=== PATIENT | female | born 1985 | race Caucasian/White ===

== ENCOUNTER 2020-08-31 05:11 | Emergency (ER) | payer OTHER ==
[~2020-08-31] VITALS: Ht 165.1 cm; Wt 70.3 kg
[~2020-08-31 05:11] MED LIST: DOXYCYCLINE HY100 MG PO; HYDROXYZINE HCL25 MG PO
[2020-08-31] MEDS ORDERED: LEVOTHYROXINE50 MCG PO (05:21)
[2020-08-31] MEDS ORDERED: BACLOFEN10 MG PO (05:21)
[2020-08-31] MEDS ORDERED: FLUOXETINE HCL60 MG PO (05:21)
[2020-08-31] MEDS ORDERED: DOXYCYCLINE HY100 MG PO (05:40)
== END 2020-08-31 05:54 | disposition home or self-care (01) ==
LOC: ED 05:11
DX: L70.9 Acne, unspecified (principal); L98.9 Disorder of the skin and subcutaneous tissue, unspecified; F17.200 Nicotine dependence, unspecified, uncomplicated; Z79.899 Other long term (current) drug therapy
CPT/HCPCS: 99282

== ENCOUNTER 2021-10-05 12:36 | Emergency (ER) | payer OTHER ==
[~2021-10-05] VITALS: Ht 165.1 cm; Wt 70.3 kg
[~2021-10-05 12:36] MED LIST changes: +BACLOFEN10 MG PO; +FLUOXETINE HCL60 MG PO; +LEVOTHYROXINE50 MCG PO
[2021-10-05] MEDS ORDERED: METHADONE HCL5 MG PO (15:13)
[2021-10-05] MEDS ORDERED: BACTRIM DS TAB1 EACH PO (18:15)
--- NOTE | 2021-10-06 12:14 | EKG ---
[facility] [address] [place], [place] [address] Signed Sinus tachycardia Otherwise normal ECG No previous ECGs available Confirmed by DIANA COLEMAN MD ([id number]) on 10/06/2021 12:14:01 PM Electronically Signed By: DIANA COLEMAN MD 10/06/21 1214 PATIENT NAME: SOLANGE BELL Electrocardiogram DATE OF : 85 PHYSICIAN: DIANA COLEMAN MD REPORT #: [id number] REPORT IS CONFIDENTIAL AND NOT TO BE RELEASED WITHOUT AUTHORIZATION
== END 2021-10-05 23:08 | disposition home or self-care (01) ==
LOC: ED 12:36
DX: L03.312 Cellulitis of back [any part except buttock and flank] (principal); L03.114 Cellulitis of left upper limb; F17.200 Nicotine dependence, unspecified, uncomplicated; Z20.822 Contact with and (suspected) exposure to COVID-19
CPT/HCPCS: 36415; 71045; 80053; 81001; 83605; 85025; 85610; 85730; 87502; 93005; 93010; 96365; 96366; 99284-25; A9270; C9803; J1885; J3370; J7030; J7060; U0003

== ENCOUNTER 2022-09-03 14:28 | Emergency (ER) | payer OTHER ==
[~2022-09-03] VITALS: Ht 165.1 cm; Wt 70.3 kg
[~2022-09-03 14:28] MED LIST changes: +BACTRIM DS TAB1 EACH PO; +METHADONE HCL5 MG PO
[2022-09-03] MEDS ORDERED: CLEOCIN HCL300 MG PO (19:27)
[2022-09-03 20:10] VITALS: BP 120/71
== END 2022-09-03 20:10 | disposition home or self-care (01) ==
LOC: ED 14:28
DX: L02.01 Cutaneous abscess of face (principal); F17.200 Nicotine dependence, unspecified, uncomplicated; Z79.899 Other long term (current) drug therapy
CPT/HCPCS: 10060; 36415; 70487; 80053; 84703; 85025; 99283-25; J1885; J3490; Q9967

== ENCOUNTER 2022-11-11 23:27 | Emergency (ER) | payer OTHER ==
[~2022-11-11] VITALS: Ht 162.6 cm; Wt 70.3 kg
--- OUTSIDE RECORDS SUMMARY | ~2022-11-11 | XMS | Continuity of Care Document ---
Demographics + + + | Address | [address] | | | [place] [address] | + + + | Preferred Language | Unknown | + + + | Marital Status | Never | + + + | Yazidi Affiliation | Unknown | + + + | Race | White | + + + | Ethnic Group | Not or | + + + Author + + + | Author | [facility] | + + + | Organization | [facility] | + + + | Address | [address] | | | [place] [address] | + + + | Phone | | + + + Care Team Providers + + + + | Care Military Communications Specialist Name | Role | Phone | + + + + Unavailable | Unavailable | + + + + Unavailable | Unavailable | + + + + Allergies No information. Encounters No information. Functional Status No information. Immunizations No information. Medications + + + + | date | description | facility | + + + + | 2021-10-06 00:00 | FLUOXETINE HCL | [facility] | + + + + | 2020-08-31 00:00 | DOXYCYCLINE HYCLATE | [facility] | + + + + | 2014-08-09 00:00 | DOXYCYCLINE HYCLATE | [facility] | + + + + | 2021-10-06 00:00 | BACLOFEN | [facility] | + + + + | 2022-09-03 00:00 | CLINDAMYCIN HCL | [facility] | + + + + | 2021-10-05 00:00 | | [facility] | | | SULFAMETHOXAZOLE/TRIMETHOPR | | | | IM DS | | + + + + | 2021-10-06 00:00 | METHADONE HCL | [facility] | + + + + | 2022-09-03 00:00 | METHADONE HCL | [facility] | + + + + | 2021-10-06 00:00 | LEVOTHYROXINE SODIUM | [facility] | + + + + | 2021-10-06 00:00 | hydrOXYzine HCL | [facility] | + + + + | 2022-09-03 00:00 | hydrOXYzine HCL | [facility] | + + + + Problems + + + + | date | description | facility | + + + + | 2014-08-25 00:00 | Substance abuse | [facility] | + + + + | 2021-10-05 00:00 | Cellulitis of back except | [facility] | | | buttock | | + + + + | 2022-09-03 00:00 | Abscess of face | [facility] | + + + + | 2022-09-03 14:29 | NICOTINE DEPENDENCE, | [facility] | | | UNSPECIFIED, UNCOMPLICATED | | + + + + | 2022-09-03 14:29 | CUTANEOUS ABSCESS OF FACE | [facility] | + + + + | 2022-09-03 14:29 | OTHER DEBEAKER (CURRENT) | [facility] | | | DRUG THERAPY | | + + + + Procedures No information. Results/Labs +--------+--------+ +---------+--------+---------+ | test | date | facility | value | unit | notes | +--------+--------+ +---------+--------+---------+ + + | Result panel 1 | + + + + + + + + + | | 2021-10-05 | [facility] | NEGATIVE | (missing) | (missing) | | (unavailable | 15:20 [facility] | | | + + + + + + + + + | Result panel 2 | + + + + + + + + + | | 2021-10-05 | [facility] | NEGATIVE | (missing) | (missing) | | (unavailable | 15:20 [facility] | | | | + + + + + + + + + | Result panel 3 | + + + + + + + + + | | 2021-10-05 | [facility] | NEGATIVE | (missing) | (missing) | | (unavailable | 15:20 [facility] | | | | + + + + + + + + + | Result panel 4 | + + + + + + + + + | | 2021-10-05 | [facility] | NEGATIVE | (missing) | (missing) | | (unavailable | 15:20 [facility] | | | | + + + + + + + + + | Result panel 5 | + + + + + +--------+ + + | | 2021-10-05 | [facility] | 14.5 | (missing) | (missing) | | (unavailable | 18:32 [facility] | | | | + + + +--------+ + + + + | Result panel 6 | + + + + + +--------+ + + | | 2021-10-05 | [facility] | 1.17 | (missing) | (missing) | | (unavailable | 18:32 [facility] | | | | + + + +--------+ + + + + | Result panel 7 | + + + + + +--------+ + + | | 2021-10-05 | [facility] | 28.3 | (missing) | (missing) | | (unavailable | 18:32 [facility] | | | | + + + +--------+ + + + + | Result panel 8 | + + + + + +------+---------+ + | | 2021-10-05 | [facility] | 96 | mg/dL | (missing) | | (unavailable | 18:32 [facility] | | | | + + + +------+---------+ + + + | Result panel 9 | + + + + + +------+---------+ + | | 2021-10-05 | [facility] | 12 | mg/dL | (missing) | | (unavailable | 18:32 [facility] | | | | + + + +------+---------+ + + + | Result panel 10 | + + + + + +--------+---------+ + | | 2021-10-05 | [facility] | 1.02 | mg/dL | (missing) | | (unavailable | 18:32 [facility] | | | | + + + +--------+---------+ + + + | Result panel 11 | + + + + + +------+ + + | | 2021-10-05 | [facility] | 73 | (missing) | (missing) | | (unavailable | 18:32 [facility] | | | | + + + +------+ + + + + | Result panel 12 | + + + + + +---------+ + + | | 2021-10-05 | [facility] | 11.76 | (missing) | (missing) | | (unavailable | 18:32 [facility] | | | | + + + +---------+ + + + + | Result panel 13 | + + + + + +-------+ + + | | 2021-10-05 | [facility] | 132 | (missing) | (missing) | | (unavailable | 18:32 [facility] | | | | + + + +-------+ + + + + | Result panel 14 | + + + + + +-------+ + + | | 2021-10-05 | [facility] | 3.6 | (missing) | (missing) | | (unavailable | 18:32 [facility] | | | | + + + +-------+ + + + + | Result panel 15 | + + + + + +------+ + + | | 2021-10-05 | [facility] | 95 | (missing) | (missing) | | (unavailable | 18:32 [facility] | | | | + + + +------+ + + + + | Result panel 16 | + + + + + +------+ + + | | 2021-10-05 | [facility] | 25 | (missing) | (missing) | | (unavailable | 18:32 [facility] | | | | + + + +------+ + + + + | Result panel 17 | + + + + + +--------+ + + | | 2021-10-05 | [facility] | 15.6 | (missing) | (missing) | | (unavailable | 18:32 [facility] | | | | + + + +--------+ + + + + | Result panel 18 | + + + + + +-------+---------+ + | | 2021-10-05 | [facility] | 8.3 | mg/dL | (missing) | | (unavailable | 18:32 [facility] | | | | + + + +-------+---------+ + + + | Result panel 19 | + + + + + +-------+ + + | | 2021-10-05 | [facility] | 6.9 | (missing) | (missing) | | (unavailable | 18:32 [facility] | | | | + + + +-------+ + + + + | Result panel 20 | + + + + + +-------+ + + | | 2021-10-05 | [facility] | 2.9 | (missing) | (missing) | | (unavailable | 18:32 [facility] | | | | + + + +-------+ + + + + | Result panel 21 | + + + + + +-------+ + + | | 2021-10-05 | [facility] | 4.0 | (missing) | (missing) | | (unavailable | 18:32 [facility] | | | | + + + +-------+ + + + + | Result panel 22 | + + + + + +--------+ + + | | 2021-10-05 | [facility] | 0.73 | (missing) | (missing) | | (unavailable | 18:32 [facility] | | | | + + + +--------+ + + + + | Result panel 23 | + + + + + +-------+ + + | | 2021-10-05 | [facility] | 0.7 | (missing) | (missing) | | (unavailable | 18:32 [facility] | | | | + + + +-------+ + + + + | Result panel 24 | + + + + + +------+ + + | | 2021-10-05 | [facility] | 12 | (missing) | (missing) | | (unavailable | 18:32 [facility] | | | | + + + +------+ + + + + | Result panel 25 | + + + + + +------+ + + | | 2021-10-05 | [facility] | 20 | (missing) | (missing) | | (unavailable | 18:32 [facility] | | | | + + + +------+ + + + + | Result panel 26 | + + + + + +------+ + + | | 2021-10-05 | [facility] | 84 | (missing) | (missing) | | (unavailable | 18:32 [facility] | | | | + + + +------+ + + + + | Result panel 27 | + + + + + +-------+ + + | | 2021-10-05 | [facility] | 1.5 | (missing) | (missing) | | (unavailable | 18:32 [facility] | | | | + + + +-------+ + + + + | Result panel 28 | + + + + + +--------+ + + | | 2021-10-05 | [facility] | 19.1 | (missing) | (missing) | | (unavailable | 19:29 [facility] | | | | + + + +--------+ + + + + | Result panel 29 | + + + + + +--------+ + + | | 2021-10-05 | [facility] | 3.71 | (missing) | (missing) | | (unavailable | 19:29 [facility] | | | | + + + +--------+ + + + + | Result panel 30 | + + + + + +--------+ + + | | 2021-10-05 | [facility] | 10.9 | (missing) | (missing) | | (unavailable | 19:29 [facility] | | | | + + + +--------+ + + + + | Result panel 31 | + + + + + +--------+ + + | | 2021-10-05 | [facility] | 32.8 | (missing) | (missing) | | (unavailable | 19:29 [facility] | | | | + + + +--------+ + + + + | Result panel 32 | + + + + + +--------+ + + | | 2021-10-05 | [facility] | 88.3 | (missing) | (missing) | | (unavailable | 19:29 [facility] | | | | + + + +--------+ + + + + | Result panel 33 | + + + + + +--------+ + + | | 2021-10-05 | [facility] | 29.5 | (missing) | (missing) | | (unavailable | 19:29 [facility] | | | | + + + +--------+ + + + + | Result panel 34 | + + + + + +--------+ + + | | 2021-10-05 | [facility] | 33.3 | (missing) | (missing) | | (unavailable | 19:29 [facility] | | | | + + + +--------+ + + + + | Result panel 35 | + + + + + +--------+ + + | | 2021-10-05 | [facility] | 13.5 | (missing) | (missing) | | (unavailable | 19:29 [facility] | | | | + + + +--------+ + + + + | Result panel 36 | + + + + + +-------+ + + | | 2021-10-05 | [facility] | 195 | (missing) | (missing) | | (unavailable | 19:29 [facility] | | | | + + + +-------+ + + + + | Result panel 37 | + + + + + +------+ + + | | 2021-10-05 | [facility] | 85 | (missing) | (missing) | | (unavailable | 19:29 [facility] | | | | + + + +------+ + + + + | Result panel 38 | + + + + + +-----+ + + | | 2021-10-05 | [facility] | 6 | (missing) | (missing) | | (unavailable | 19:29 [facility] | | | | + + + +-----+ + + + + | Result panel 39 | + + + + + +-----+ + + | | 2021-10-05 | [facility] | 7 | (missing) | (missing) | | (unavailable | 19:29 [facility] | | | | + + + +-----+ + + + + | Result panel 40 | + + + + + +-----+ + + | | 2021-10-05 | [facility] | 2 | (missing) | (missing) | | (unavailable | 19:29 [facility] | | | | + + + +-----+ + + + + | Result panel 41 | + + + + + + + + + | | 2021-10-05 | [facility] | PRESENT | (missing) | (missing) | | (unavailable | 19:29 [facility] | | | | + + + + + + + + + | Result panel 42 | + + + + + + + + + | | 2021-10-05 | [facility] | PRESENT | (missing) | (missing) | | (unavailable | 19:29 [facility] | | | | + + + + + + + + + | Result panel 43 | + + + + + + + + + | | 2021-10-05 | [facility] | YELLOW | (missing) | (missing) | | (unavailable | 20:20 [facility] | | | | + + + + + + + + + | Result panel 44 | + + + + + +---------+ + + | | 2021-10-05 | [facility] | CLEAR | (missing) | (missing) | | (unavailable | 20:20 [facility] | | | | + + + +---------+ + + + + | Result panel 45 | + + + + + + + + + | | 2021-10-05 | [facility] | NEGATIVE | (missing) | (missing) | | (unavailable | 20:20 [facility] | | | | + + + + + + + + + | Result panel 46 | + + + + + + + + + | | 2021-10-05 | [facility] | NEGATIVE | (missing) | (missing) | | (unavailable | 20:20 [facility] | | | | + + + + + + + + + | Result panel 47 | + + + + + +---------+ + + | | 2021-10-05 | [facility] | SMALL | (missing) | (missing) | | (unavailable | 20:20 [facility] | | | | + + + +---------+ + + + + | Result panel 48 | + + + + + +---------+ + + | | 2021-10-05 | [facility] | 1.020 | (missing) | (missing) | | (unavailable | 20:20 [facility] | | | | + + + +---------+ + + + + | Result panel 49 | + + + + + +---------+ + + | | 2021-10-05 | [facility] | SMALL | (missing) | (missing) | | (unavailable | 20:20 [facility] | | | | + + + +---------+ + + + + | Result panel 50 | + + + + + +-------+ + + | | 2021-10-05 | [facility] | 5.5 | (missing) | (missing) | | (unavailable | 20:20 [facility] | | | | + + + +-------+ + + + + | Result panel 51 | + + + + + + + + + | | 2021-10-05 | [facility] | NEGATIVE | (missing) | (missing) | | (unavailable | 20:20 [facility] | | | | + + + + + + + + + | Result panel 52 | + + + + + + + + + | | 2021-10-05 | [facility] | NORMAL | (missing) | (missing) | | (unavailable | 20:20 [facility] | | | | + + + + + + + + + | Result panel 53 | + + + + + + + + + | | 2021-10-05 | [facility] | NEGATIVE | (missing) | (missing) | | (unavailable | 20:20 [facility] | | | | + + + + + + + + + | Result panel 54 | + + + + + + + + + | | 2021-10-05 | [facility] | NEGATIVE | (missing) | (missing) | | (unavailable | 20:20 [facility] | | | | + + + + + + + + + | Result panel 55 | + + + + + +-------+ + + | | 2021-10-05 | [facility] | 2-3 | (missing) | (missing) | | (unavailable | 20:20 [facility] | | | | + + + +-------+ + + + + | Result panel 56 | + + + + + +-------+ + + | | 2021-10-05 | [facility] | 4-6 | (missing) | (missing) | | (unavailable | 20:20 [facility] | | | | + + + +-------+ + + + + | Result panel 57 | + + + + + + + + + | | 2021-10-05 | [facility] | SQUAMOUS 2+ | (missing) | (missing) | | (unavailable | 20:20 [facility] | | | | + + + + + + + + + | Result panel 58 | + + + + + + + + + | | 2021-10-05 | [facility] | NONE SEEN | (missing) | (missing) | | (unavailable | 20:20 [facility] | | | | + + + + + + + + + | Result panel 59 | + + + + + +--------+ + + | | 2021-10-05 | [facility] | RARE | (missing) | (missing) | | (unavailable | 20:20 [facility] | | | | + + + +--------+ + + + + | Result panel 60 | + + + + + + + + + | | 2021-10-05 | [facility] | WBC CAST 1+ | (missing) | (missing) | | (unavailable | 20:20 [facility] | | | | + + + + + + + + + | Result panel 61 | + + + + + + + + + | | 2021-10-05 | [facility] | CLEAN CATCH | (missing) | (missing) | | (unavailable | 20:20 [facility] | | | | + + + + + + + + + | Result panel 62 | + + + + + +--------+ + + | | 2022-09-03 | [facility] | 12.1 | (missing) | (missing) | | (unavailable | 17:20:07 [facility] | | | | + + + +--------+ + + + + | Result panel 63 | + + + + + +--------+ + + | | 2022-09-03 | [facility] | 77.9 | (missing) | (missing) | | (unavailable | 17:20:07 [facility] | | | | + + + +--------+ + + + + | Result panel 64 | + + + + + +--------+ + + | | 2022-09-03 | [facility] | 12.0 | (missing) | (missing) | | (unavailable | 17:20:07 [facility] | | | | + + + +--------+ + + + + | Result panel 65 | + + + + + +-------+ + + | | 2022-09-03 | [facility] | 9.1 | (missing) | (missing) | | (unavailable | 17:20:07 [facility] | | | | + + + +-------+ + + + + | Result panel 66 | + + + + + +-------+ + + | | 2022-09-03 | [facility] | 0.5 | (missing) | (missing) | | (unavailable | 17:20:07 [facility] | | | | + + + +-------+ + + + + | Result panel 67 | + + + + + +-------+ + + | | 2022-09-03 | [facility] | 0.5 | (missing) | (missing) | | (unavailable | 17:20:07 [facility] | | | | + + + +-------+ + + + + | Result panel 68 | + + + + + +-------+---------+ + | | 2022-09-03 | [facility] | 121 | mg/dL | (missing) | | (unavailable | 17:20:07 [facility] | | | | + + + +-------+---------+ + + + | Result panel 69 | + + + + + +-----+---------+ + | | 2022-09-03 | [facility] | 9 | mg/dL | (missing) | | (unavailable | 17:20:07 [facility] | | | | + + + +-----+---------+ + + + | Result panel 70 | + + + + + +--------+---------+ + | | 2022-09-03 | [facility] | 0.90 | mg/dL | (missing) | | (unavailable | 17:20:07 [facility] | | | | + + + +--------+---------+ + + + | Result panel 71 | + + + + + +------+ + + | | 2022-09-03 | [facility] | 84 | (missing) | (missing) | | (unavailable | 17:20:07 [facility] | | | | + + + +------+ + + + + | Result panel 72 | + + + + + +---------+ + + | | 2022-09-03 | [facility] | 10.00 | (missing) | (missing) | | (unavailable | 17:20:07 [facility] | | | | + + + +---------+ + + + + | Result panel 73 | + + + + + +--------+ + + | | 2022-09-03 | [facility] | 4.15 | (missing) | (missing) | | (unavailable | 17:20:07 [facility] | | | | + + + +--------+ + + + + | Result panel 74 | + + + + + +-------+ + + | | 2022-09-03 | [facility] | 137 | (missing) | (missing) | | (unavailable | 17:20:07 [facility] | | | | + + + +-------+ + + + + | Result panel 75 | + + + + + +-------+ + + | | 2022-09-03 | [facility] | 3.5 | (missing) | (missing) | | (unavailable | 17:20:07 [facility] | | | | + + + +-------+ + + + + | Result panel 76 | + + + + + +------+ + + | | 2022-09-03 | [facility] | 99 | (missing) | (missing) | | (unavailable | 17:20:07 [facility] | | | | + + + +------+ + + + + | Result panel 77 | + + + + + +------+ + + | | 2022-09-03 | [facility] | 28 | (missing) | (missing) | | (unavailable | 17:20:07 [facility] | | | | + + + +------+ + + + + | Result panel 78 | + + + + + +--------+ + + | | 2022-09-03 | [facility] | 13.5 | (missing) | (missing) | | (unavailable | 17:20:07 [facility] | | | | + + + +--------+ + + + + | Result panel 79 | + + + + + +-------+---------+ + | | 2022-09-03 | [facility] | 8.6 | mg/dL | (missing) | | (unavailable | 17:20:07 [facility] | | | | + + + +-------+---------+ + + + | Result panel 80 | + + + + + +-------+ + + | | 2022-09-03 | [facility] | 7.5 | (missing) | (missing) | | (unavailable | 17:20:07 [facility] | | | | + + + +-------+ + + + + | Result panel 81 | + + + + + +-------+ + + | | 2022-09-03 | [facility] | 3.6 | (missing) | (missing) | | (unavailable | 17:20:07 [facility] | | | | + + + +-------+ + + + + | Result panel 82 | + + + + + +-------+ + + | | 2022-09-03 | [facility] | 3.9 | (missing) | (missing) | | (unavailable | 17:20:07 [facility] | | | | + + + +-------+ + + + + | Result panel 83 | + + + + + +--------+ + + | | 2022-09-03 | [facility] | 0.92 | (missing) | (missing) | | (unavailable | 17:20:07 [facility] | | | | + + + +--------+ + + + + | Result panel 84 | + + + + + +--------+ + + | | 2022-09-03 | [facility] | 12.1 | (missing) | (missing) | | (unavailable | 17:20:07 [facility] | | | | + + + +--------+ + + + + | Result panel 85 | + + + + + +-------+ + + | | 2022-09-03 | [facility] | 0.6 | (missing) | (missing) | | (unavailable | 17:20:07 [facility] | | | | + + + +-------+ + + + + | Result panel 86 | + + + + + +------+ + + | | 2022-09-03 | [facility] | 14 | (missing) | (missing) | | (unavailable | 17:20:07 [facility] | | | | + + + +------+ + + + + | Result panel 87 | + + + + + +------+ + + | | 2022-09-03 | [facility] | 29 | (missing) | (missing) | | (unavailable | 17:20:07 [facility] | | | | + + + +------+ + + + + | Result panel 88 | + + + + + +------+ + + | | 2022-09-03 | [facility] | 91 | (missing) | (missing) | | (unavailable | 17:20:07 [facility] | | | | + + + +------+ + + + + | Result panel 89 | + + + + + + + + + | | 2022-09-03 | [facility] | NEGATIVE | (missing) | (missing) | | (unavailable | 17:20:07 [facility] | | | | + + + + + + + + + | Result panel 90 | + + + + + +--------+ + + | | 2022-09-03 | [facility] | 36.7 | (missing) | (missing) | | (unavailable | 17:20:07 [facility] | | | | + + + +--------+ + + + + | Result panel 91 | + + + + + +--------+ + + | | 2022-09-03 | [facility] | 88.5 | (missing) | (missing) | | (unavailable | 17:20:07 [facility] | | | | + + + +--------+ + + + + | Result panel 92 | + + + + + +--------+ + + | | 2022-09-03 | [facility] | 29.2 | (missing) | (missing) | | (unavailable | 17:20:07 [facility] | | | | + + + +--------+ + + + + | Result panel 93 | + + + + + +--------+ + + | | 2022-09-03 | [facility] | 33.0 | (missing) | (missing) | | (unavailable | 17:20:07 [facility] | | | | + + + +--------+ + + + + | Result panel 94 | + + + + + +--------+ + + | | 2022-09-03 | [facility] | 13.7 | (missing) | (missing) | | (unavailable | 17:20:07 [facility] | | | | + + + +--------+ + + + + | Result panel 95 | + + + + + +-------+ + + | | 2022-09-03 | [facility] | 278 | (missing) | (missing) | | (unavailable | 17:20:07 [facility] | | | | + + + +-------+ + + Social History No information. Vital Signs + + + +---------+ | date | measurement | value | units | + + + +---------+ | 2021-10-05 00:00 | BMI | 25.8 | kg/m2 | + + + +---------+ | 2021-10-05 00:00 | BP_diastolic | 75 | mmHg | + + + +---------+ | 2021-10-05 00:00 | BP_systolic | 115 | mmHg | + + + +---------+ | 2021-10-05 00:00 | heart_rate | 99 | /min | + + + +---------+ | 2021-10-05 00:00 | height_metric | 165.1 | cm | + + + +---------+ | 2021-10-05 00:00 | height_standard | 65 | in | + + + +---------+ | 2021-10-05 00:00 | o2_saturation | 100 | % | + + + +---------+ | 2021-10-05 00:00 | respiration_rate | 19 | /min | + + + +---------+ | 2021-10-05 00:00 | temperature_metric | 37.17 | C | | | | | | + + + +---------+ | 2021-10-05 00:00 | | 98.9 | F | | | temperature_standar | | | | | d | | | + + + +---------+ | 2021-10-05 00:00 | weight_metric | 70.31 | kg | + + + +---------+ | 2021-10-05 00:00 | weight_standard | 155 | lb | + + + +---------+ | 2021-10-05 00:00 | weight_standard | 155.01 | lb | + + + +---------+ | 2022-09-03 00:00 | BMI | 25.8 | kg/m2 | + + + +---------+ | 2022-09-03 00:00 | BP_diastolic | 71 | mmHg | + + + +---------+ | 2022-09-03 00:00 | BP_systolic | 120 | mmHg | + + + +---------+ | 2022-09-03 00:00 | heart_rate | 93 | /min | + + + +---------+ | 2022-09-03 00:00 | height_metric | 165.1 | cm | + + + +---------+ | 2022-09-03 00:00 | height_standard | 65 | in | + + + +---------+ | 2022-09-03 00:00 | o2_saturation | 99 | % | + + + +---------+ | 2022-09-03 00:00 | respiration_rate | 16 | /min | + + + +---------+ | 2022-09-03 00:00 | temperature_metric | 37 | C | | | | | | + + + +---------+ | 2022-09-03 00:00 | | 98.6 | F | | | temperature_standar | | | | | d | | | + + + +---------+ | 2022-09-03 00:00 | weight_metric | 70.31 | kg | + + + +---------+ | 2022-09-03 00:00 | weight_standard | 155 | lb | + + + +---------+ | 2022-09-03 00:00 | weight_standard | 155.01 | lb | + + + +---------+"
--- OUTSIDE RECORDS SUMMARY | ~2022-11-11 | XMS | Continuity of Care Document ---
Demographics + + + | Address | [address] | | | [place] [address] | + + + | Preferred Language | Unknown | + + + | Marital Status | Never | + + + | Restoration Affiliation | Unknown | + + + | Race | White | + + + | Ethnic Group | Not or | + + + Author + + + | Author | [facility] | + + + | Organization | [facility] | + + + | Address | [address] | | | [place] [address] | + + + | Phone | | + + + Care Team Providers + + + + | Care Second Operator Name | Role | Phone | + + + + Unavailable | Unavailable | + + + + Unavailable | Unavailable | + + + + Allergies No information. Encounters No information. Functional Status No information. Immunizations No information. Medications + + + + | date | description | facility | + + + + | 2021-10-06 00:00 | FLUOXETINE HCL | [facility] | + + + + | 2020-08-31 00:00 | DOXYCYCLINE HYCLATE | [facility] | + + + + | 2014-08-09 00:00 | DOXYCYCLINE HYCLATE | [facility] | + + + + | 2021-10-06 00:00 | BACLOFEN | [facility] | + + + + | 2022-09-03 00:00 | CLINDAMYCIN HCL | [facility] | + + + + | 2021-10-05 00:00 | | [facility] | | | SULFAMETHOXAZOLE/TRIMETHOPR | | | | IM DS | | + + + + | 2021-10-06 00:00 | METHADONE HCL | [facility] | + + + + | 2022-09-03 00:00 | METHADONE HCL | [facility] | + + + + | 2021-10-06 00:00 | LEVOTHYROXINE SODIUM | [facility] | + + + + | 2021-10-06 00:00 | hydrOXYzine HCL | [facility] | + + + + | 2022-09-03 00:00 | hydrOXYzine HCL | [facility] | + + + + Problems + + + + | date | description | facility | + + + + | 2014-08-25 00:00 | Substance abuse | [facility] | + + + + | 2021-10-05 00:00 | Cellulitis of back except | [facility] | | | buttock | | + + + + | 2022-09-03 00:00 | Abscess of face | [facility] | + + + + | 2022-09-03 14:29 | NICOTINE DEPENDENCE, | [facility] | | | UNSPECIFIED, UNCOMPLICATED | | + + + + | 2022-09-03 14:29 | CUTANEOUS ABSCESS OF FACE | [facility] | + + + + | 2022-09-03 14:29 | 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
[~2022-11-11 23:27] MED LIST changes: +CLEOCIN HCL300 MG PO
[2022-11-11] MEDS ORDERED: BACTRIM DS TAB1 EACH PO (23:43)
[2022-11-12 00:21] VITALS: BP 143/93
== END 2022-11-12 00:21 | disposition home or self-care (01) ==
LOC: ED 23:27
DX: L03.012 Cellulitis of left finger (principal); Z79.2 Long term (current) use of antibiotics; F17.200 Nicotine dependence, unspecified, uncomplicated
CPT/HCPCS: 99283; A9270

== ENCOUNTER 2023-11-06 17:23 | Emergency (ER) | payer OTHER ==
[~2023-11-06] VITALS: Ht 162.6 cm; Wt 67.4 kg
[2023-11-06 20:22] VITALS: BP 125/82
[2023-11-06] MEDS ORDERED: DOXYCYCLINE HY100 MG PO (20:27)
[2023-11-06] MEDS ORDERED: DOXYCYCLINE HYCLATE 100 MG CAP PO ONE (20:30)
== END 2023-11-06 20:36 | disposition home or self-care (01) ==
LOC: ED 17:23
DX: L03.115 Cellulitis of right lower limb (principal); L03.116 Cellulitis of left lower limb; F17.200 Nicotine dependence, unspecified, uncomplicated; Z91.048 Other nonmedicinal substance allergy status
CPT/HCPCS: 99282

== ENCOUNTER 2023-11-28 04:37 | Emergency (ER) | payer OTHER ==
[~2023-11-28] VITALS: Ht 162.6 cm; Wt 60.0 kg
--- OUTSIDE RECORDS SUMMARY | 2023-11-28 04:39 | XMS ---
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 Clinic/Center: [facility] Current \F\ [facility] PHONE: [phone] Kristina has no Care Guidelines for this patient. E.D. VISIT COUNT (12 MO.) 2 [facility] TOTAL 2 NOTE: Visits indicate total known visits. ED/UCC VISIT TRACKING (12 MO.) 11/28/2023 04:37 [facility] [place] TYPE: Emergency COMPLAINT: - HAND LACERATION 11/06/2023 17:24 [facility] [place] TYPE: Emergency COMPLAINT: - SKIN PROBLEM DIAGNOSES: - Cellulitis of left lower limb - Cellulitis of right lower limb - Nicotine dependence, unspecified, uncomplicated - Other nonmedicinal substance allergy status INPATIENT VISIT TRACKING (12 MO.) No inpatient visits to display in this time frame [email or web address]
[2023-11-28] MEDS ORDERED: DIPHTH,PERTUSS(ACELL),TET VAC 0.5 ML SYRINGE IM ONE (05:00)
[2023-11-28] MEDS ORDERED: AMOXICILLIN/CLAVULANATE K 875 MG TAB PO ONE (06:30)
[2023-11-28] MEDS ORDERED: AMOX TR-K CLV1 EAC1 PO (06:52)
[2023-11-28 07:07] VITALS: BP 110/68
== END 2023-11-28 07:09 | disposition home or self-care (01) ==
LOC: ED 04:37
DX: S66.126A Laceration of flexor muscle, fascia and tendon of right little finger at wrist and hand level, initial encounter (principal); S61.210A Laceration without foreign body of right index finger without damage to nail, initial encounter; S66.122A Laceration of flexor muscle, fascia and tendon of right middle finger at wrist and hand level, initial encounter; S66.124A Laceration of flexor muscle, fascia and tendon of right ring finger at wrist and hand level, initial encounter; W26.0XXA Contact with knife, initial encounter; F17.200 Nicotine dependence, unspecified, uncomplicated; Z91.09 Other allergy status, other than to drugs and biological substances
CPT/HCPCS: 12001; 73130; 90471; 90715; 99283-25

== ENCOUNTER 2024-05-03 11:11 | Emergency (ER) | payer OTHER ==
[~2024-05-03] VITALS: Ht 162.6 cm; Wt 61.2 kg
[~2024-05-03 11:11] MED LIST changes: +AMOX TR-K CLV1 EAC1 PO
[2024-05-03 12:41] VITALS: BP 132/89
== END 2024-05-03 12:43 | disposition other institution, planned readmission (95) ==
LOC: ED 11:11
DX: Z02.89 Encounter for other administrative examinations (principal); F15.929 Other stimulant use, unspecified with intoxication, unspecified; F11.929 Opioid use, unspecified with intoxication, unspecified; F17.200 Nicotine dependence, unspecified, uncomplicated; Z91.048 Other nonmedicinal substance allergy status; Z79.899 Other long term (current) drug therapy; V89.2XXA Person injured in unspecified motor-vehicle accident, traffic, initial encounter
CPT/HCPCS: 99284